=== PATIENT | female | born 1975 | race Caucasian/White ===

== ENCOUNTER 2023-01-21 06:17 | Emergency (ER) | payer OTHER ==
[~2023-01-21] VITALS: Ht 160 cm; Wt 77.1 kg
[2023-01-21 06:26] VITALS: BP 166/139; PULSE 86; RESP 19; TEMP 98.2; O2SAT 99
[2023-01-21] MEDS: hydrALAZINE 20 MG/ML VIAL IM ONE (06:46)
[2023-01-21] MEDS ORDERED: HYDR12.51 PO ×2 (07:11→07:12)
[2023-01-21 07:16] VITALS: BP 127/80; PULSE 77; RESP 19; TEMP 98.2; O2SAT 99
== END 2023-01-21 07:16 | disposition home or self-care (01) ==
LOC: MED 06:17
DX: I10 Essential (primary) hypertension (principal); Z02.89 Encounter for other administrative examinations
CPT/HCPCS: 96372; 99283; J0360